=== PATIENT | female | born 2000 | race Caucasian/White ===

== ENCOUNTER 2018-11-15 01:02 | Emergency (ER) | payer OTHER ==
[2018-11-15] MEDS ORDERED: Lorazepam 1 MG TAB ONE (02:28)
== END 2018-11-15 02:48 | disposition home or self-care (01) ==
LOC: ERS 01:02
DX: F41.9 Anxiety disorder, unspecified (principal); R07.89 Other chest pain; F32.9 Major depressive disorder, single episode, unspecified; Z79.899 Other long term (current) drug therapy
CPT/HCPCS: 93005